=== PATIENT | female | born 1980 | race Caucasian/White ===

== ENCOUNTER → 2017-10-26 | Outpatient (CLI) | payer OTHER | LOC: M.RAD 12:53 | DX: N63.12 Unspecified lump in the right breast, upper inner quadrant (principal); R92.2 Inconclusive mammogram ==

== ENCOUNTER → 2018-10-31 | Outpatient (CLI) | payer OTHER | LOC: M.RAD 11:55 | DX: M79.672 Pain in left foot (principal) ==

== ENCOUNTER 2020-04-25 10:13 | Emergency (ER) | payer OTHER ==
[~2020-04-25] VITALS: Ht 167.6 cm; Wt 63.5 kg
[2020-04-25] MEDS ORDERED: BUTALB-APAP-CA1 EACH PO (10:26)
[2020-04-25] MEDS ORDERED: PROZAC40 MG PO (10:26)
[2020-04-25] MEDS ORDERED: CLONAZEPAM 1 MG1 M1 PO (10:26)
[2020-04-25] MEDS ORDERED: AMITRIPTYLINE H50 M2 PO (10:26)
[2020-04-25] MEDS ORDERED: WELLBUTRIN SR150 MG PO (10:26)
[2020-04-25] MEDS ORDERED: FLEXERIL PO (10:26)
[2020-04-25] MEDS ORDERED: FLONASE 0.05%50 MCG NARES (10:27)
[2020-04-25] MEDS ORDERED: SINGULAIR 10 MG10 MG PO (10:27)
[2020-04-25] MEDS ORDERED: FAMOTIDINE20 MG PO (10:27)
[2020-04-25] MEDS ORDERED: IMITREX100 MG PO (10:27)
[2020-04-25] MEDS ORDERED: TOPAMAX 25 MG T25 MG PO (10:27)
[2020-04-25 10:52] LABS: ABSOLUTE BASOPHILS 0.1 thou/uL (0.0-0.2); ABSOLUTE EOSINOPHILS 0.3 thou/uL (0.0-0.7); ABSOLUTE LYMPHOCYTES 1.6 thou/uL (0.8-5.3); ABSOLUTE MONOCYTES 0.4 thou/uL (0.0-1.2); ABSOLUTE NEUTROPHILS 2.9 thou/uL (1.6-8.1); BASOPHILS 1.4 %; HEMATOCRIT 38.7 % (37.0-47.0); HEMOGLOBIN 12.6 gm/dL (12.0-15.0); LYMPHOCYTES 30.4 %; MCH 28.7 pg (26.0-34.0); MCHC 32.6 g/dL (28.0-37.0); MCV 88.1 fL (80.0-100.0); MONOCYTES 8.1 %; MPV 8.4 fl. (7.2-11.1); NUCLEATED RBCS 0 /100WBC; PLATELET COUNT* 244 thou/uL (150-400); POLYS 55.1 %; RDW-CV 13.2 % (10.5-14.5); WBC 5.3 thou/uL (4.0-11.0)
[2020-04-25 11:03] LABS: CALCIUM 8.8 mg/dL (8.5-10.1); CREATININE 0.9 mg/dL (0.6-1.3); POTASSIUM 3.7 mmol/L (3.5-5.1)
[2020-04-25 11:05] LABS: PROTIME 10.3 Seconds (9.20-11.50)
[2020-04-25 11:05] LABS: URINE BILIRUBIN NEGATIVE (Negative); URINE BLOOD 3+ (Negative); URINE CLARITY CLEAR; URINE COLOR YELLOW; URINE GLUCOSE-RANDOM NEGATIVE (Negative); URINE KETONES NEGATIVE (Negative); URINE LEUKOCYTES NEGATIVE (Negative); URINE NITRITE NEGATIVE (Negative); URINE PROTEIN NEGATIVE (Negative); URINE UROBILINOGEN 0.2 E.U./dl (0.2-1.0)
[2020-04-25 11:07] LABS: ALBUMIN 3.7 g/dL (3.4-5.0); TOTAL BILIRUBIN 0.2 mg/dL (<0.1-1.0); TOTAL PROTEIN 7.3 g/dL (6.4-8.2)
[2020-04-25 11:10] LABS: BACTERIA None Seen /HPF (None Seen); CASTS None Seen /LPF (None Seen); CRYSTALS None Seen /LPF (None Seen); MUCUS None Seen strn/LPF (None Seen); SQUAMOUS 0-3 Few /LPF (0-3); URINE WBC 0-5 Rare /HPF (0-5)
[2020-04-25 13:13] VITALS: BP 112/79
== END 2020-04-25 13:14 | disposition home or self-care (01) ==
LOC: M.ERS 10:13
PROVIDERS: Emergency Medicine Emergency Medical Services
DX: N93.8 Other specified abnormal uterine and vaginal bleeding (principal); R10.9 Unspecified abdominal pain; G43.909 Migraine, unspecified, not intractable, without status migrainosus; F41.9 Anxiety disorder, unspecified; F32.9 Major depressive disorder, single episode, unspecified; Z79.899 Other long term (current) drug therapy

== ENCOUNTER 2020-04-26 20:06 | Emergency (ER) | payer OTHER ==
[~2020-04-26] VITALS: Ht 167.6 cm; Wt 63.5 kg
[~2020-04-26 20:06] MED LIST: AMITRIPTYLINE H50 M2 PO; BUTALB-APAP-CA1 EACH PO; CLONAZEPAM 1 MG1 M1 PO; FAMOTIDINE20 MG PO; FLEXERIL PO; FLONASE 0.05%50 MCG NARES; IMITREX100 MG PO; PROZAC40 MG PO; SINGULAIR 10 MG10 MG PO; TOPAMAX 25 MG T25 MG PO; WELLBUTRIN SR150 MG PO
[2020-04-26 20:46] LABS: HEMATOCRIT 32.3 % (37.0-47.0); MCHC 32.6 g/dL (28.0-37.0); MCV 88.8 fL (80.0-100.0); MPV 8.8 fl. (7.2-11.1); RBC 3.63 mil/uL (4.20-5.00); RDW-CV 13.6 % (10.5-14.5); WBC 7.5 thou/uL (4.0-11.0)
[2020-04-26 20:47] LABS: HEMOGLOBIN 10.5 gm/dL (12.0-15.0)
[2020-04-26 22:05] VITALS: BP 97/61
== END 2020-04-26 22:06 | disposition home or self-care (01) ==
LOC: M.ERS 20:06
PROVIDERS: Personal Emergency Response Attendant
DX: N93.9 Abnormal uterine and vaginal bleeding, unspecified (principal); G43.909 Migraine, unspecified, not intractable, without status migrainosus